=== PATIENT | female | born 1960 | race American Indian/Alaskan Native ===

== ENCOUNTER 2018-06-22 13:31 | Emergency (ER) | payer OTHER ==
[2018-06-22 13:31] VITALS: BMI 26.6
[2018-06-22 13:46] VITALS: O2SAT 99
--- NOTE | 2018-06-22 14:04 | ED PDOC ---
Arrival/HPI - General Chief Complaint: Dizziness/Lightheaded Time Seen by Provider: 06/22/18 14:01 Historian: Patient, Family (daughter) - History of Present Illness Narrative History of Present Illness (Text): 06/22/18 14:02 57 y/o female with PMH of STEMI (s/p stent 12/19/17), CAD, HTN, COPD, Asthma, GERD, Uterine CA, and chronic back pain who presents to the ED c/o headache and lightheadedness x 1 week. 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 The school nurse gave her a glucose tab because she had not eaten today and called the ambulance. 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 Headache is located posteriorly behind the right ear, 8/10 described as sharp and constant. Lightheadedness is only present immediately upon changing position. Pt also feels she has been straining her eyes to see far distances lately and has not seen the eye doctor in 1 year. She takes all of her medications daily, including today. Denies fever, chills, chest pain, palpitations, syncope, SOB, vertigo, tinnitus, abdominal pain, nausea, vomiting, diarrhea, dark stools, hematochezia, weakness, numbness, parethesias, changes in speech, vision changes. Past Medical History - Provider Review Nursing Documentation Reviewed: Yes - Infectious Disease Hx of Infectious Diseases: None - Cardiac Hx Cardiac Disorders: Yes Hx CO: Yes (12/19/2017) Hx Hypertension: Yes - Pulmonary Hx Respiratory Disorders: Yes Hx Asthma: Yes Hx Chronic Obstructive Pulmonary Disease (COPD): Yes - Neurological Hx Neurological Disorder: No - HEENT Hx HEENT Disorder: No - Renal Hx Renal Disorder: No - Endocrine/Metabolic Hx Endocrine Disorders: No - Hematological/Oncological Hx Blood Disorders: Yes Hx Blood Transfusions: No Hx Blood Transfusion Reaction: No Hx Cancer: Yes (UTERINE; AGE 27) - Integumentary Hx Dermatological Disorder: No - Musculoskeletal/Rheumatological Hx Musculoskeletal Disorders: Yes Hx Back Pain: Yes (chronic lower BACK) Hx Falls: No Hx Fractures: No - Gastrointestinal Hx Gastrointestinal Disorders: Yes Hx Gastroesophageal Reflux: Yes HX Swallowing Problems: Yes (W/ ODYNOPHAGIA) Other/Comment: 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 LUNGS DEVELOPING PUS POCKETS AND CHEST TUBE INSERTION - Genitourinary/Gynecological Hx Genitourinary Disorders: Yes Hx Uterine Cancer: Yes - Psychiatric Hx Psychophysiologic Disorder: No Hx Substance Use: No - Surgical History Hx Section: Yes (X 2) Hx Hysterectomy: Yes (PARTIAL AT AGE 27) Hx Pulmonary Surgery: Yes (CHEST TUBE INSERTION FOR DRAINAGE OF PUS POCKETS) Other/Comment: C- section x2 - Anesthesia Hx Anesthesia: Yes Hx Anesthesia Reactions: No Hx Malignant Hyperthermia: No Family/Social History - Physician Review Nursing Documentation Reviewed: Yes Family/Social History: No Known Family HX Smoking Status: Current Some Days Smoker Hx Alcohol Use: No Hx Substance Use: No Allergies/Home Meds Allergies/Adverse Reactions: Allergies iodine Allergy (Severe, Verified 10/22/17 08:24) SHORTNESS OF BREATH RASH; "THROAT CLOSES" shellfish derived Adverse Reaction (Verified 12/19/17 15:33) ANAPHYLAXIS SEAFOOD Allergy (Severe, Uncoded 10/27/16 11:59) SHORTNESS OF BREATH RASH; "THROAT CLOSES" Home Medications: Home Meds Medication Instructions Recorded Confirmed Metoclopramide [Reglan] 5 mg PO TID 05/07/15 04/12/18 Albuterol HFA [Ventolin HFA 90 1 puff IH BID 02/04/16 04/12/18 mcg/actuation (8 g)] Sucralfate 1 gm PO TID 02/04/16 10/22/17 Multivitamin [Daily Keith] 1 tab PO DAILY 10/22/17 04/12/18 Omeprazole 40 mg PO DAILY 10/22/17 04/12/18 Ranitidine HCl [Zantac] 1 tab PO DAILY 12/19/17 04/12/18 Cyproheptadine [Periactin] 1 tab PO DAILY 12/21/17 04/12/18 Sertraline HCl [Zoloft] 1 tab PO DAILY 12/21/17 04/12/18 Zolpidem [Ambien] 1 tab PO DAILY 12/21/17 Review of Systems - Physician Review All systems were reviewed & negative as marked: Yes - Review of Systems Constitutional: Normal. absent: Fevers Eyes: Normal. absent: Photophobia, Eye Pain ENT: Normal. absent: Hearing Changes, Tinnitus, Sore Throat, Rhinorrhea, Sinus Congestion Respiratory: Normal. absent: SOB, Cough Cardiovascular: Normal. absent: Chest Pain, Palpitations, Edema, Calf Pain, Syncope Gastrointestinal: Normal. absent: Abdominal Pain, Constipation, Diarrhea, Nausea, Vomiting, Appetite Changes, Hematochezia Genitourinary Female: Normal. absent: Dysuria, Frequency, Hematuria, Urine Output Changes Musculoskeletal: Back Pain (chronic). absent: Arthralgias, Neck Pain, Myalgias Skin: Normal. absent: Rash, Cellulitis Neurological: Headache, Dizziness. absent: Focal Weakness, Gait Changes, Speech Changes, Facial Droop, Disequilibrium, Seizure Endocrine: Normal. absent: Diaphoresis Hemo/Lymphatic: Normal. absent: Adenopathy Physical Exam Vital Signs Reviewed: Yes Vital Signs Temp Pulse Resp BP Pulse Ox 06/22/18 13:40 99.2 F 74 17 155/91 H 99 Temperature: Afebrile Blood Pressure: Hypertensive (known h/o HTN) Pulse: Regular Respiratory Rate: Normal Appearance: Positive for: Well-Appearing, Non-Toxic, Comfortable Pain Distress: None Mental Status: Positive for: Alert and Oriented X 3 - Systems Exam Head: Present: Atraumatic, Normocephalic Pupils: Present: PERRL Extroacular Muscles: Present: EOMI Conjunctiva: Present: Normal Ears: Present: NORMAL TM Mouth: Present: Moist Mucous Membranes Pharnyx: Present: Normal. No: ERYTHEMA, EXUDATE Neck: Present: Normal Range of Motion. No: MIDLINE TENDERNESS, Paraspinal Tenderness Respiratory/Chest: Present: Clear to Auscultation, Good Air Exchange. No: Respiratory Distress, Accessory Muscle Use Cardiovascular: Present: Regular Rate and Rhythm, Normal S1, S2. No: Murmurs Abdomen: No: Tenderness, Distention, Peritoneal Signs Upper Extremity: Present: Normal Inspection, Normal ROM, NORMAL PULSES, Capillary Refill < 2s. No: Cyanosis, Edema, Tenderness, Swelling Lower Extremity: Present: Normal Inspection, NORMAL PULSES, Normal ROM, Capillary Refill < 2 s. No: Edema, Tenderness, Swelling Neurological: Present: GCS=15, CN II-XII Intact, Speech Normal, Motor Func Grossly Intact, Normal Sensory Function, Normal Cerebellar Funct, Gait Normal, Memory Normal Skin: Present: Warm, Dry, Normal Color. No: Rashes Lymphatic: No: Cervical Adenopathy Psychiatric: Present: Alert, Oriented x 3, Normal Insight, Normal Concentration Medical Decision Making ED Course and Treatment: 06/22/18 14:48 57 y/o female with PMH of STEMI (s/p stent 12/19/17), CAD, HTN, COPD, Asthma, GERD, Uterine CA, and chronic back pain who presents to the ED c/o headache and lightheadedness x 1 week. 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 The school nurse gave her a glucose tab because she had not eaten today and called the ambulance. 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 Headache is located posteriorly behind the right ear, 8/10 described as sharp and constant. Lightheadedness is only present immediately upon changing position. Pt also feels she has been straining her eyes to see far distances lately and has not seen the eye doctor in 1 year. She takes all of her medications daily, including today. Denies fever, chills, chest pain, palpitations, syncope, SOB, vertigo, tinnitus, abdominal pain, nausea, vomiting, diarrhea, dark stools, hematochezia, weakness, numbness, parethesias, changes in speech, vision changes. Physical exam normal. will order labs (CBC, CMP) will order ekg will order UA and culture will give fluids 06/22/18 15:11 CBC: wnl CMP: wnl; glucose elevated secondary to glucose tab this am UA: wnl EKG normal: Rate 73; Normal sinus rhythm; no signs of ischemia 06/22/18 16:01 Pt reevaluated, states she feels much better. headache now 2/10, no longer lightheaded. Impression: Orthostatic lightheadedness, tension headache Plan: Increase fluid intake to stay hydrated Take Tylenol as needed for pain Take medications as prescribed Followup with primary doctor within 2 days Return to ED if pain worsens, weakness, numbness, tingling, difficulty speaking, difficulty seeing, facial droop, vomiting, fever Plan discussed with pt and daughter who agree and understand. Pt and daughter comfortable with discharge home. - EKG Interpretation EKG Interpretation (Text): 06/22/18 17:44 Rate 73; Normal sinus rhythm; no signs of ischemia Interpreted by ED Physician: Yes Type: 12 lead EKG (N) Disposition/Present on Arrival - Present on Arrival Any Indicators Present on Arrival: No History of DVT/PE: No History of Uncontrolled Diabetes: No Urinary Catheter: No History of Decub. Ulcer: No History Surgical Site Infection Following: None - Disposition Have Diagnosis and Disposition been Completed?: Yes Diagnosis: Tension headache, Dehydration, Orthostatic dizziness Disposition: HOME/ ROUTINE Disposition Time: 03:20 Patient Plan: Discharge Patient Problems: Current Active Problems Problem Status Onset Tension headache Acute Dehydration Acute Orthostatic dizziness Acute Condition: IMPROVED Discharge Instructions (ExitCare): Tension Headache, Dehydration, Adult (DC) Additional Instructions: Increase fluid intake to stay hydrated Take Tylenol as needed for pain Take medications as prescribed Followup with primary doctor within 2 days Return to ED if pain worsens, weakness, numbness, tingling, difficulty speaking, difficulty seeing, facial droop, vomiting, fever Referrals: Mae Zarate MD [Primary Care Provider] - Follow up with primary Forms: [facility] ([place]), WORK NOTE
[2018-06-22] MEDS ORDERED: Sodium Chloride 0.9% 1,000 ML IV STA (14:23)
[2018-06-22 14:40] LABS: BASO # 0.01 K/mm3 (0.0-2.0); BASO % 0.1 % (0.0-3.0); EOS # 0.1 (0.0-0.7); GRAN # 6.18 (1.4-6.5); GRAN % 69.3 % (50.0-68.0); HEMOGLOBIN 11.9 g/dL (12.0-16.0); LYMPH # 2.2 (1.2-3.4); LYMPH % 24.4 % (22.0-35.0); MEAN CELL VOLUME 89.5 fl (80.0-105.0); MEAN CORPUSCULAR HEMOGLOBIN 29.8 pg (25.0-35.0); MEAN CORPUSCULAR HGB CONC 33.2 g/dl (31.0-37.0); MONO # 0.5 (0.1-0.6); MONO % 5.2 % (1.0-6.0); RED CELL DISTRIBUTION WIDTH 16.4 % (11.5-14.5); URINE BILIRUBIN NEGATIVE (NEGATIVE); URINE BLOOD NEGATIVE (NEGATIVE); URINE GLUCOSE (UA) NEGATIVE (NEGATIVE); URINE LEUKOCYTE ESTERASE NEGATIVE Leu/uL (NEGATIVE); URINE PROTEIN NEGATIVE mg/dL (<30 mg/dL); URINE UROBILINOGEN 0.2 E.U./dL (<1 E.U./dL); WHITE BLOOD COUNT 8.9 10^3/ul (4.5-11.0)
[2018-06-22 14:45] LABS: URINE APPEARANCE CLEAR (CLEAR); URINE COLOR YELLOW (YELLOW)
[2018-06-22 14:50] LABS: ALB/GLOB RATIO 1.3 (1.1-1.8); ALBUMIN 4.5 g/dL (3.0-4.8); ALT/SGPT 17 U/L (7-56); AST/SGOT 36 U/L (14-36); BLOOD UREA NITROGEN 11 mg/dL (7-21); CALCIUM 10.2 mg/dL (8.4-10.5); GFR NON-AFRICAN AMERICAN 58
[2018-06-22 23:30] VITALS: BP 142/70; PULSE 72; RESP 18; TEMP 99.1
--- NOTE | 2018-06-23 09:15 | CARD ---
APPROVED REPORT Date of service: 06/22/2018 EKG Measurement Heart [id number] VT 160P0 [id number] <Conclusion> Normal sinus rhythm Possible IMI, old No change
== END 2018-06-22 16:00 | disposition home or self-care (01) ==
LOC: ED 13:31
DX: G44.209 Tension-type headache, unspecified, not intractable (principal); E86.0 Dehydration; R42 Dizziness and giddiness; I10 Essential (primary) hypertension
CPT/HCPCS: 80053; 81003; 82948; 85025; 87086; 93005; 99285; J7030